=== PATIENT | female | born 1985 | race Caucasian/White ===

== ENCOUNTER 2017-04-17 06:06 | Emergency (ER) | payer OTHER, BC ==
[~2017-04-17] VITALS: Ht 172.7 cm; Wt 128.6 kg
[2017-04-17 06:56] LABS: BASOPHIL (%) 0.5 % (0-1); EOSINOPHIL (%) 2.7 % (0-5); EOSINOPHIL COUNT 0.2 K/uL (0-0.3); HEMATOCRIT 43.7 % (36.0-46.0); HEMOGLOBIN 14.7 G/DL (11.9-15.5); IMMATURE GRANULOCYTE (%) 0.1 % (0.0-0.7); LYMPHOCYTE (%) 35.8 % (15-42); LYMPHOCYTE COUNT 2.7 K/uL (1.0-2.8); MCH 30.4 PG (29.0-34.0); MCHC 33.6 G/DL (30.0-36.0); MCV 90.5 FL (83-99); MONOCYTE (%) 5.8 % (3-12); MONOCYTE COUNT 0.4 K/uL (0-0.8); NEUTROPHIL (%) 55.1 % (45-76); NEUTROPHIL COUNT 4.1 K/uL (1.8-6.4); PLATELET COUNT 221 K/uL (156-360); RBC DIS.WIDTH-SD 42.8 % (39-53); RED BLOOD COUNT 4.83 M/uL (3.80-5.20); WHITE BLOOD COUNT 7.5 K/uL (4.1-10.2)
[2017-04-17 07:23] LABS: CHLORIDE 107 MEQ/L (99-109); POTASSIUM 4.2 MEQ/L (3.7-5.4); SODIUM 141 MEQ/L (136-147); TOTAL BILIRUBIN 0.3 MG/DL (0.0-1.0)
[2017-04-17 07:29] LABS: ALKALINE PHOSPHATASE 72 IU/L (3-129); ALT (GPT) 20 IU/L (3-49); AST (GOT) 17 IU/L (2-34); CREATININE 0.8 MG/DL (0.6-1.3); GFR ESTIMATE (CALCULATED) > 59 mL/min/; GLUCOSE 87 mg/dL (70-99); UREA NITROGEN (BUN) 11 mg/dL (9-23)
[2017-04-17 08:07] VITALS: BP 112/83
== END 2017-04-17 08:07 | disposition home or self-care (01) ==
LOC: EME 06:06
PROVIDERS: Emergency Medicine
DX: S61.032A Puncture wound without foreign body of left thumb without damage to nail, initial encounter (principal); Z77.21 Contact with and (suspected) exposure to potentially hazardous body fluids; W46.1XXA Contact with contaminated hypodermic needle, initial encounter; Z57.8 Occupational exposure to other risk factors; Y99.0 Civilian activity done for income or pay; Z88.0 Allergy status to penicillin
CPT/HCPCS: 80053; 81025; 85025; 86704; 86706; 86803; 87389; 99281; 99284